=== PATIENT | female | born 1940 | race Caucasian/White ===

== ENCOUNTER 2021-12-28 11:02 | Inpatient (IN) | payer OTHER ==
[~2021-12-28] VITALS: Ht 157.5 cm; Wt 95.7 kg
--- NOTE | ~2021-12-28 | EMS ---
[facility] [address] [place] [address] EMS Patient Care Report Name: ROSSANA JEFFERS Room #: 433-I ADM IN M.R.#: [id number] Admission: 12/28/21 Attend Phys: To Silva DO Discharge: Date of : 40 Report #: [id number] THIS REPORT FOR: //name// Report Transmitted: 12/29/2021 13:27 EMS Care Summary [facility] Incident [id number] @ 12/28/2021 10:14 [address]ident [address] [place] [address] Patient ROSSANA JEFFERS Female, 81 Years 1940 Patient Address [address] [place] [address] Patient History Dementia,Diabetes,Cellulitis, Patient Allergies Penicillin allergy, Patient Medications Sulfamethoxazole, Furosemide, Insulin, Ropinirole, Nystatin, Chief Complaint Slid out of chair and could not get up Disposition Transported No Lights/[place] [facility] Reason Falls Transported To [facility] Narrative Medic 52 was dispatched to the home of a 81 YO F with a chief complaint of a fall with no injuries. Medic 52 ran non-emergent to the scene. Upon arrival to the scene the PT was found lying in front of her powered recliner stating that she was not in any pain and did not injure herself. PT stated that she had set [facility] [address] [place] [address] EMS Patient Care Report Name: ROSSANA JEFFERS Room #: 433-I ADM IN .R.#: [id number] Admission: 12/28/21 Attend Phys: To Silva, DO Discharge: Date of : 40 Report #: [id number] the remote down in the chair and must have moved and sat on the lower position and it slowly slid her out of the chair and onto the ground in front of her where she stayed for roughly two hours until her daughter came over and found her. PT???s daughter stated she was POA and wanted her transported to [facility] to be assessed. PT agreed to going. PT was then assisted off of the floor and the cot was brought directly behind her and the PT was able to sit straight back. PT was then sat down in a semi-Lentz???s position and remained in that position throughout transport. PT was then wheeled out to the ambulance and placed inside. Once inside vitals were obtained and PT transport was initiated. PT remained alert and rested comfortably on the cot on the way to the hospital. Upon arrival PT was wheeled to room 6 and care was transferred to Luciana SHARMA. Medic 52 was then cleaned and returned to service. End of report. Initial Vitals @10:34P: 83,R: 18,BP: 143/64,Pain: 0/10,GCS: 14,SpO2: 95,Revised Trauma: 12, @10:50P: 80,R: 18,BP: 131/91,Pain: 0/10,GCS: 14,SpO2: 94,Revised Trauma: 12, Impression No Complaints or Injury/Illness Noted Procedures @10:20 ALS Assessment Response: UnchangedSucceeded Timeline 10:12,Call Received 10:12,Psap Call 10:14,Dispatched 10:16,En Route 10:18,On Scene 10:20,At Patient 10:20,ALS Assessment,Response: UnchangedSucceeded, 10:31,Depart Scene 10:34,BP: 143/64 M,PULSE: 83,RR: 18 R,SPO2: 95 Ox,ETCO2: ,BG: ,PAIN: 0,GCS: 14, 10:50,BP: 131/91 M,PULSE: 80,RR: 18 R,SPO2: 94 Ox,ETCO2: ,BG: ,PAIN: 0,GCS: 14, 10:58,At Destination 11:12,Transfer Patient 11:39,Call Closed Disclaimer v1.1 Copyright 2021 [employer] This EMS Care Summary contains data elements from the applicable legal record (which may be displayed differently). It is designed to provide pertinent information for the following purposes: continuity of care, clinical quality, and state data reporting. The complete [place] [address] EMS Patient Care Report Name: ROSSANA JEFFERS Room #: 433-I ADM IN M.R.#: [id number] Admission: 12/28/21 Attend Phys: To Silva DO Discharge: Date of : 40 Report #: [id number] and administrators of the receiving hospital in [facility]'s Patient Tracker. All data is provided "as is."
[2021-12-28 11:03] VITALS: BP 139/64
[2021-12-28 11:32] LABS: ABSOLUTE NEUTROPHILS 4.9 thou/uL (1.4-8.2); EOSINOPHILS 5.6 % (0.0-3.0); HEMOGLOBIN 12.4 gm/dL (12.0-15.0); MCHC 33.7 g/dL (28.0-37.0); MCV 89.1 fL (80.0-100.0); MONOCYTES 6.9 % (1.0-8.0); PLATELET COUNT 283 thou/uL (150-400); POLYS 69.5 % (36.0-66.0); RBC 4.15 mil/uL (4.20-5.00)
[2021-12-28 11:39] LABS: CREATININE 1.6 mg/dL (0.6-1.0); POTASSIUM 3.1 mmol/L (3.5-5.1)
[2021-12-28 11:46] LABS: ALBUMIN 3.1 g/dL (3.4-5.0); TOTAL BILIRUBIN 0.5 mg/dL (0.2-1.0); TOTAL PROTEIN 6.7 g/dL (6.4-8.2)
[2021-12-28 12:29] LABS: URINE BILIRUBIN NEGATIVE (Negative); URINE BLOOD NEGATIVE (Negative); URINE CLARITY CLEAR; URINE COLOR YELLOW; URINE GLUCOSE-RANDOM* NEGATIVE (Negative); URINE KETONES NEGATIVE (Negative); URINE LEUKOCYTES-REFLEX NEGATIVE (Negative); URINE NITRITE-REFLEX NEGATIVE (Negative); URINE PROTEIN (DIPSTICK) NEGATIVE (Negative); URINE UROBILINOGEN 0.2 E.U./dl (0.2-1.0)
[2021-12-28 15:12] VITALS: BP 132/60
[2021-12-28 16:04] VITALS: BP 132/60
--- NOTE | 2021-12-28 17:00 | NUR ---
PT RECEIVED FROM ER ALERT AND IN NO ACUTE DISTRESS. FELL AT HOME. FEELS WEAK. HAS SCOTT LE CELLULITIS WORSE ON RT LEG. SCAB AND DRY SKIN NOTED. GAULDED IN GROIN AND UNDER BREASTS. NO C/O PAIN. SMACK GIVEN.
[2021-12-28 17:36] VITALS: BP 111/49
[2021-12-28 19:51] VITALS: BP 104/49
--- NOTE | 2021-12-29 02:37 | NUR ---
ADMISSION COMPLETED. PT IS PLEASANT AND COOPERATIVE.DENIES PAIN. CELLULITIS OF BLE, WORSE TO THE LEFT. AFEBRILE. ROOM AIR.APPEARSTO BE IN NO DISTRESS.SR ON TELEMETRY.
[2021-12-29 06:14] LABS: HEMATOCRIT 32.2 % (37.0-47.0); HEMOGLOBIN 10.5 gm/dL (12.0-15.0); MCH 29.5 pg (26.0-34.0); MCHC 32.7 g/dL (28.0-37.0); MCV 90.4 fL (80.0-100.0); RBC 3.56 mil/uL (4.20-5.00); RDW 14.2 % (10.5-14.5); WBC 5.6 thou/uL (4.0-11.0)
[2021-12-29 06:35] LABS: CALCIUM 7.7 mg/dL (8.5-10.1); CREATININE 1.4 mg/dL (0.6-1.0); POTASSIUM 3.2 mmol/L (3.5-5.1)
--- NOTE | 2021-12-29 07:40 | EKG ---
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 : 1940 Requested By: Jay Garcia Order Number: [id number] MD: Uvaldo Kaminski Measurements Intervals [place] Rate: 79 P: 58 DE: 136 QRS: -5 QRSD: 140 T: 28 QT: 434 QTc: 498 Interpretive Statements Sinus rhythm Probable left atrial enlargement Artifact in lead(s) I,II,III,aVR,aVL,aVF,V1,V2,V5,V6 No previous ECG available for comparison Electronically Signed On 12-29-2021 7:40:20 PHOTOGRAPHIC PROCESS WORKER by Uvaldo Kaminski [email or web address] <ELECTRONICALLY SIGNED> By: Uvaldo Kaminski MD, [facility] 12/29/21 0740 [id number] Uvaldo Kaminski MD, [facility] /EPI
[2021-12-29 08:20] VITALS: BP 101/54
[2021-12-29 15:00] VITALS: BP 105/36
--- NOTE | 2021-12-29 16:13 | NUR ---
Met with patient who cannot recall some events. Patient admits from sliding off of a chair at home.Patient reports she lvies at home alone. All needs on one level. She has a few steps to enter home. She uses her walker all the time. recent hospital stay in November she discharged to [facility]. She has HH with [facility]. Patient lives in [place], dtr lives behind patient. Spoke with dtr who reports she wants to sp with phys. She reports patient has difficulty because her knee anais and that is what has caused her to fall. She has recent falls as well. Dtr reports camera system in home and motion detectors to observe patient. Sp with [facility] HH care who has concerns with patient returning home with HH care. She has not been able to make improvement in home. Dtr requests referral to [facility] for post acute care.
--- NOTE | 2021-12-29 19:40 | NUR ---
Patient is pleasant, sit up in the chair, no pain. call light within reach, will continous monitoring.
--- NOTE | 2021-12-30 03:21 | NUR ---
PT IS ALERT TO SELF AND PLACE. FORGETFUL. PT PULLED IV-DRESSING TO LLE APPLIED. PT DENIES PAIN. UP TO [facility], REPORTS WEAKNESS, SHE TAKES TIME TO TRANSFER.WAS INCONTINENT OF BLADDER. NYSTATIN POWDER APPLIED TO REDENNED AREAS IN GROIN AND UNDER BREAST. FALL PREC IN PLACE.
[2021-12-30 07:18] VITALS: BP 135/72
--- NOTE | 2021-12-30 10:08 | NUR ---
Assumed care of pt at 0700. pt a&ox1-2. Denies pain. Dressings on eriberto LE c/d/i. IVF infusing. Pt working with physical therapy this am. Call light within reach. Fall precautions in place. Will continue to monitor.
[2021-12-30 11:10] VITALS: BP 128/59
--- NOTE | 2021-12-30 15:35 | HC ---
[facility] [place] [address] CONSULTATION Name: ROSSANA JEFFERS Room #: 446-P ADM IN M.R.#: [id number] Admission: 12/28/21 Attend Phys: To Silva DO Discharge: Date of : 40 Report #: [id number] THIS REPORT FOR: cc: Brad Sharma MD, Stanley P. MD Althoff, Jeffrey R. MD ~ DATE OF SERVICE: 12/29/2021 CHIEF COMPLAINT: Bilateral lower extremity ulceration. HISTORY OF PRESENT ILLNESS: This is an 81-year-old female with whom I am familiar from previous hospitalizations, who was admitted to the hospital with increasing fluid and drainage and cellulitis to the lower extremities. She has a history of volume overload, fluid retention and type 2 diabetes mellitus. She has moderate discomfort, but is in good spirits today. PAST MEDICAL HISTORY: Positive for type 2 diabetes mellitus, bilateral lower extremity lymphedema, hypertension, gastroesophageal reflux, morbid obesity, generalized debility and mild dementia. ALLERGIES: Include PENICILLIN. MEDICATIONS: Include acetaminophen, enoxaparin, hydrocodone, insulin, magnesium sulfate, magnesium oxide, nystatin, ondansetron, potassium chloride, vancomycin and zolpidem. FAMILY HISTORY: Noncontributory. SOCIAL HISTORY: Negative for alcohol or tobacco use currently. REVIEW OF SYSTEMS: CONSTITUTIONAL: The patient denies fever, chills, weight loss. NEUROLOGICAL: The patient denies focal weakness. ENT: The patient denies earache, nasal drainage or sore throat. CARDIOVASCULAR: The patient denies chest pain, palpitations or diaphoresis. PULMONARY: She has cough, shortness of breath. GASTROINTESTINAL: Denies diarrhea or abdominal pain. ORTHOPEDIC: The patient denies pain, but does have some pain, swelling in lower extremities, right greater than left. Others systems in a 14-point review of systems are negative. PHYSICAL EXAMINATION: VITAL SIGNS: Include temperature 36.3, pulse 82, respiration of 18, blood pressure 101/54. GENERAL: This is a chronically ill-appearing female patient who appears to be [address] [address] CONSULTATION Name: ROSSANA JEFFERS Room #: 446-P ADM IN M.R.#: [id number] Admission: 12/28/21 Attend Phys: To Silva DO Discharge: Date of : 40 Report #: [id number] in mild discomfort. HEENT: Head normocephalic. Nose and throat are clear. NECK: Supple. LUNGS: Diminished. ABDOMEN: Soft, nontender. EXTREMITIES: Lower extremities demonstrate venous stasis dermatitis with cellulitis bilaterally, more so on the right than on the left. LABORATORY STUDIES: Include white blood cell count 5.6, hemoglobin 10.5, hematocrit 32.2. Sodium 145, potassium 3.2, chloride 110, CO2 of 26, BUN 25, creatinine 1.4, glucose 94. CLINICAL IMPRESSION: 1. Venous stasis dermatitis, bilateral lower extremities with cellulitis. 2. Type 2 diabetes mellitus. 3. Hypertension. 4. Chronic kidney disease stage III. 5. Generalized debility and morbid obesity. 6. Mild protein-calorie malnutrition with albumin of 3.1. RECOMMENDATIONS: At this point in time, recommend topical Xeroform, ABD, Kerlix and Rudolph from toes to knees bilaterally. Heel protectors at all times. Currently on empiric antibiotic therapy. I appreciate being asked to see her in consultation. <ELECTRONICALLY SIGNED> By: Ernesto Hummel MD 12/30/21 1535 [id number] 06 Ernesto Hummel MD /nt
[2021-12-30 16:07] VITALS: BP 140/62
[2021-12-30 20:34] VITALS: BP 144/72
[2021-12-31 08:00] VITALS: BP 119/76
--- NOTE | 2021-12-31 10:42 | NUR ---
Assumed care of pt at 0700. Pt a&ox1-2. Forgetful. Dressings on eriberto legs c/d/i. IVF infusing. Possible d/c to skilled today. Call light within reach. Fall precautions in place. Will continue to monitor.
[2021-12-31] MEDS ORDERED: CULTURELLE KID1 EAC1 PO (11:13)
[2021-12-31] MEDS ORDERED: NYAMYC15 GM TOP (11:13)
[2021-12-31] MEDS ORDERED: ACETAMINOPHEN325 M1 PO (11:13)
[2021-12-31] MEDS ORDERED: BACTRIM DS TAB1 EAC1 PO (11:13)
--- NOTE | 2021-12-31 13:49 | NUR ---
Patient accepted to [facility] they have auth. Sp with dtr this am to alert accepted and planned transfer today. Rec orders and faxed. Sp with patient to alert dc to [facility] today. Transport for [id number]. Notified patient and RN. Left message on dtrs voicemail of time of transport. no further needs
[2021-12-31 15:04] VITALS: BP 130/61
== END 2021-12-31 15:33 | DRG 603 ==
LOC: ER 11:02 → EROBS 13:29 → 4S 13:29
PROVIDERS: Physician Assistant; ADMIT Pediatrics; ATTEND Pediatrics
DX: L03.116 Cellulitis of left lower limb (principal); E44.0 Moderate protein-calorie malnutrition; L97.911 Non-pressure chronic ulcer of unspecified part of right lower leg limited to breakdown of skin; L97.921 Non-pressure chronic ulcer of unspecified part of left lower leg limited to breakdown of skin; N17.9 Acute kidney failure, unspecified; L03.115 Cellulitis of right lower limb; E66.01 Morbid (severe) obesity due to excess calories; E87.6 Hypokalemia; Z20.822 Contact with and (suspected) exposure to COVID-19; Z68.38 Body mass index [BMI] 38.0-38.9, adult; Z88.0 Allergy status to penicillin; I83.009 Varicose veins of unspecified lower extremity with ulcer of unspecified site; K21.9 Gastro-esophageal reflux disease without esophagitis; I12.9 Hypertensive chronic kidney disease with stage 1 through stage 4 chronic kidney disease, or unspecified chronic kidney disease; E11.22 Type 2 diabetes mellitus with diabetic chronic kidney disease; Z79.4 Long term (current) use of insulin; N18.32 Chronic kidney disease, stage 3b; G47.00 Insomnia, unspecified; G25.81 Restless legs syndrome; R53.81 Other malaise
CPT/HCPCS: 10100